=== PATIENT | female | born 1940 | race Caucasian/White ===

== ENCOUNTER 2019-10-20 13:24 | Emergency (ER) | payer MEDICARE, SELFPAY ==
[2019-10-20] VITALS (10 sets, daily range): BP systolic 61–94; BP diastolic 37–75; PULSE 83–111; RESP 14–22; TEMP 34.4–36.6; O2SAT 93–100; BMI 14.8
--- NOTE | 2019-10-20 13:25 | EKG12_ITS ---
Test Reason : STROKE TEAM Blood Pressure : / mmHG Vent. Rate : 114 BPM Atrial Rate : 114 BPM P-R Int : 000 ms QRS Dur : 074 ms QT Int : 388 ms P-R-T Axes : 000 070 -83 degrees QTc Int : 534 ms Atrial fibrillation with rapid ventricular response Anterior infarct , possibly acute T wave abnormality, consider inferolateral ischemia Confirmed by ROBIN HENDERSON, REBA ([id number]), commercial production editor CINDY WHITFIELD ([id number]) on 10/22/2019 8:32:18 AM Referred By: LAKEISHA Confirmed By:REBA KELLY MD
--- NOTE | 2019-10-20 13:25 | CT_ITS ---
STUDY: CT BRAIN WITHOUT CONTRAST REASON FOR EXAM: Female, 79 years old. RT SIDE DEFICIT RADIATION DOSAGE (If Supplied By Facility): CTDIvol = ( 44.99 ) mGy, DLP = ( 745.49 ) mGycm TECHNIQUE: Transaxial CT imaging of the brain was performed without administration of intravenous contrast material. Individualized dose optimization techniques were used for this CT. COMPARISON: No relevant priors. FINDINGS: Normal soft tissue structures. Normal calvarium. There is mild cerebral atrophy with widening of the extra-axial spaces and ventricular dilatation. There are areas of decreased attenuation within the white matter tracts of the supratentorial brain, consistent with microvascular disease changes. There is low attenuation within the basal ganglia compatible with prior ischemic change. Normal brainstem. Normal cerebellum. There is no intracranial hemorrhage. There are no findings of an acute ischemic infarction. There are bilateral middle turbinate kwame bullosa''s. There is an air-fluid level within the enlarged left mastoid air cell image #11. There is minimal fluid in the right-sided mastoid air cells. CT/Brain/Head without Contrast IMPRESSION: Atrophy no evidence of acute hemorrhage infarct or edema. Recommend consideration for follow-up MRI given the clinical history. Age indeterminant possibly acute left greater than right mastoiditis. Electronically Signed: Bhumi Garcia MD at 13:46 EDT Tel , Service support ,
--- NOTE | 2019-10-20 13:27 | CT_ITS ---
STUDY: CTA HEAD AND NECK WITH CONTRAST REASON FOR EXAM: Female, 79 years old. NEURO DEFICIT RADIATION DOSAGE (If Supplied By Facility): CTDIvol = ( 13.29 ) mGy, DLP = ( 373.69 ) mGycm TECHNIQUE: CT angiography was performed with a multi-detector CT scanner. Data acquisition was obtained from the skull base through the vertex following intravenous administration of 100 CC ISOVUE 370. MIP images were reconstructed from the axial data set. Post-processing of the angiographic images was performed, with multiplanar reformation and 3D reconstruction. Individualized dose optimization techniques were used for this CT. COMPARISON: CT head October 20, 2019 FINDINGS: Normal bilateral petrous carotid arteries. There is calcified plaque formation of the right cavernous carotid artery, with a mild stenosis (less than 50%). There is calcified plaque formation of the left cavernous carotid artery, with a mild stenosis (less than 50%). Hypoplastic but patent right A1 segments of the anterior cerebral artery. Normal left A1 segments of the anterior cerebral artery. Normal intact anterior communicating artery (ACOM). Normal bilateral A2 segments of the anterior cerebral arteries. Normal right M1 and M2 segments of the middle cerebral arteries, with a normal M1 bifurcation. In the proximal M1 segment there is a focus of narrowing image #170 to within the left M1 segment. There appears to be an abrupt cut off within the superior segment left M2 segment image #48 of the coronal views. There is enhancement of the insular segment. There is diminished vascularity of the left parietal lobe image #196. Normal right posterior communicating artery (PCOM). Normal left posterior communicating artery (PCOM). Normal bilateral vertebral arteries. Normal basilar artery with a normal basilar bifurcation. The visualized bilateral superior cerebellar (SCA) arteries are normal. There is a hypoplastic appearance of the right sided P1. There is no demonstrated aneurysm of the [place] of [place]. There is subtle low attenuation within the left hemisphere compared to the right. AORTIC ARCH: The aortic arch is displaced to the left ICA massively distended thick-walled fluid-filled partially contrast filled esophagus and/or paraesophageal mass that measures up to 4.5 x 4.6 cm. This extends from the thoracic inlet to the visualized mediastinum. There is right greater than left apical thickening. There is calcification at the takeoff of the left vertebral artery which is extending from the aortic arch. The takeoff of the innominate is not visualized. RIGHT CAROTID ARTERIES: There is atherosclerotic tortuous elongation of the right common carotid artery. The right carotid bulb is medially located and seen in the prevertebral space behind the level of the epiglottis. There is mild atherosclerotic plaque formation of the origin of the right internal carotid artery with less than 50% cross sectional diameter stenosis. There is atherosclerotic tortuous elongation of the cervical portion of the right internal carotid artery. Normal origin of the right external carotid artery (ECA). LEFT CAROTID ARTERIES: A proximal left common carotid artery is not fully imaged on this study. The left carotid bulb is also tortuous sitting behind the level of the epiglottis. There is mild atherosclerotic plaque formation of the origin of the left internal carotid artery with less than 50% cross sectional diameter stenosis. There is atherosclerotic tortuous elongation of the cervical portion of the left internal carotid artery. Normal origin of the left external carotid artery (ECA). VERTEBRAL ARTERIES: As mentioned above there is direct takeoff from the aorta of the left vertebral artery which is partially calcified at its take off. Vessels appear patent. CT/CTA Head AND Neck W/ Contrast IMPRESSION: There is massive distention of the visualized proximal thickened appearing esophagus measuring 4.5 x 4.6 cm which is full of food and/or fluid which pushes the aorta towards the left. There is also some effacement of the trachea. Recommend correlation with clinical history. Esophagus is likely obstructed and there is a large mass in the esophagus. Recommend CT scan of the chest when appropriate. Findings highly suspicious for occlusion of the superior division of the left MCA artery involving the distal M2 segment. There is also diminished vascularity possible early edema of the left parietal lobe in the same distribution, not as well-seen on the earlier study 1:30 PM without contrast.. There is focal narrowing in the M1 segment without occlusion. Atrophy chronic involutional change. There is tortuosity of the carotid bulbs without occlusion. There is less than 50% stenosis suggested at the bilateral internal carotid arteries allowing for some motion artifact in the vicinity. N.B. : The above information has been verbally conveyed by Bhumi Garcia MD to Michael Logan MD, on 10/20/2019 14:31:33 (ET). Electronically Signed: Bhumi Garcia MD at 14:32 EDT Tel , Service support ,
--- NOTE | 2019-10-20 13:28 | ED.VIS.STROK ---
History of Present Illness Chief Complaint: Neuro S/Sx Informant: [employer] Onset: Today Context: Sudden Onset Timing: Continuous Quality and Location: Right Facial Droop, Right Arm Weakness, Right Leg Weakness, Expressive Aphasia, Difficulty with Ambulation Onset: 1229October 19 Current Severity: Severe Maximum Severity: Severe Worsened by: Nothing Relieved by: Nothing Associated Symptoms: - - Unable to determine Narrative: Patient 79-year-old woman brought in by squad because of concern for stroke. Upon arrival patient has eyes forced to the left. Flaccid right side. Asymmetric face. Unable to speak. There appears to be a visual field deficit with threat coming from the right side. History is limited. Squad informed us that the family did not know how to spell her name. When daughter arrived I spoke to her and told her of her mother's condition and concerns. She also informed me she saw her primary care for physician and was placed on medicine for flulike symptoms. She was seen on . She was placed on medicine. Prior similar symptoms: No Recent Illness/Hospitalization: No - Past Medical History (1) COPD (chronic obstructive pulmonary disease) Status: Chronic (2) Anemia, iron deficiency Status: Acute Past Medical History - Allergies and Home Meds Allergies/Adverse Reactions: Allergies No Known Allergies Allergy (Verified 10/20/19 14:21) Primary Care Physician: Efrem Abernathy MD [Primary Care Provider] - Lives: With Family Smoking Status: Current every day smoker Alcohol: None Drugs: None - Family History Maternal Family History: Reports: No pertinent history Review of Systems ROS: Unable to Obtain STROKE Inital Vital Signs reviewed: No - Patient taken straight to CAT scan - NIHSS Initial 1b LOC Questions (Score 2 if aphasic/stupor): 2 1c LOC Commands (Only score 1st attempt): 2 2 Best Gaze (If aphasic, use reflexive mvmts.): 2 3 Visual: 1 4 Facial Palsy: 1 5 Motor Arm Right (UN = amputation/fusion): 4 5 Motor Arm Left: 0 6 Motor Leg Right: 4 6 Motor Leg Left: 0 7 Limb ataxia (Only + if out of proportion): UN 8 Sensory (Aphasia/stupor=0 or 1, coma=2): 2 9 Best Language: 2 10 Dysarthria (mute, coma=2, intubated=UN): 2 11 Extinction and Inattention (only scored if +): 2 Total Score: 24 General: Well developed, Cachectic Head: Normocephalic, Atraumatic Eyes: Negative for: EOMI, Pale conjunctiva, Scleral icterus ENT: No rhinorrhea, Dry mucous membranes Neck: Supple, Nontender, No lymphadenopathy Cardiovascular: Regular rate, Regular rhythm, No murmurs, Normal S1, Normal S2 Respiratory: No distress, Chest nontender, Decreased Air Movement Abdomen: Soft, Nontender, Nondistended, Normal bowel sounds, No masses Rectal: Deferred Back: Nontender Extremities: Nontender, No edema Skin: Normal color, No rash, Cyanosis - Patient has acrocyanosis. Cap refill is delayed. Neurological: Negative for: Alert, Oriented x3, Cranial nerves II-XII grossly intact, Normal Strength, Normal Sensation, Normal DTR, Normal Gait Psychological: - - Able to determine Diagnostic/Tx/Re-eval Impressions Brain CT 10/20/19 13:25 IMPRESSION: Atrophy no evidence of acute hemorrhage infarct or edema. Recommend consideration for follow-up MRI given the clinical history. Age indeterminant possibly acute left greater than right mastoiditis. Electronically Signed: Bhumi Garcia MD at 13:46 EDT Tel , Service support , Head/Neck CTA 10/20/19 13:27 IMPRESSION: There is massive distention of the visualized proximal thickened appearing esophagus measuring 4.5 x 4.6 cm which is full of food and/or fluid which pushes the aorta towards the left. There is also some effacement of the trachea. Recommend correlation with clinical history. Esophagus is likely obstructed and there is a large mass in the esophagus. Recommend CT scan of the chest when appropriate. Findings highly suspicious for occlusion of the superior division of the left MCA artery involving the distal M2 segment. There is also diminished vascularity possible early edema of the left parietal lobe in the same distribution, not as well-seen on the earlier study 1:30 PM without contrast.. There is focal narrowing in the M1 segment without occlusion. Atrophy chronic involutional change. There is tortuosity of the carotid bulbs without occlusion. There is less than 50% stenosis suggested at the bilateral internal carotid arteries allowing for some motion artifact in the vicinity. N.B. : The above information has been verbally conveyed by Bhumi Garcia MD to Michael Logan MD, on 10/20/2019 14:31:33 (ET). Electronically Signed: Bhumi Garcia MD at 14:32 EDT Tel , Service support , ADDENDUM: 10/20/19 1439 IMPRESSION: There is massive distention of the visualized proximal thickened appearing esophagus measuring 4.5 x 4.6 cm which is full of food and/or fluid which pushes the aorta towards the left. There is also some effacement of the trachea. Recommend correlation with clinical history. Esophagus is likely obstructed and there is a large mass in the esophagus. Recommend CT scan of the chest when appropriate. Findings highly suspicious for occlusion of the superior division of the left MCA artery involving the distal M2 segment. There is also diminished vascularity possible early edema of the left parietal lobe in the same distribution, not as well-seen on the earlier study 1:30 PM without contrast.. There is focal narrowing in the M1 segment without occlusion. Atrophy chronic involutional change. There is tortuosity of the carotid bulbs without occlusion. There is less than 50% stenosis suggested at the bilateral internal carotid arteries allowing for some motion artifact in the vicinity. N.B. : The above information has been verbally conveyed by Bhumi Garcia MD to Mihcael Logan MD, on 10/20/2019 14:31:33 (ET). Electronically Signed: Bhumi Garcia MD at 14:32 EDT Tel , Service support , Chest X-Ray 10/20/19 13:52 IMPRESSION: There is increased density in the right paramediastinal soft tissues which on this chest x-ray does not clearly represent the true size of a distended proximal esophagus full of food or possible mass which on limited visualization on the CT scan of the carotid and measured up to 5 cm. There is increased density at the isela which could be due to represent the same. When appropriate recommend consideration for CT scan of the chest. Nonspecific hyperinflation of the lungs which may represent chronic obstructive pulmonary disease. Electronically Signed: Bhumi Garcia MD at 14:46 EDT Tel , Service support , 10/20/19 13:25 Brain/Head without Contrast [CT] Stat 10/20/19 13:27 CTA Head AND Neck W/ Contrast [CT] Stat 10/20/19 13:52 Chest 1 View (Portable) [RAD] Stat 10/20/19 14:25 Mucosa - Nasopharyngeal Influenza Types A,B Direct FA (DONTAE) - Final 10/20/19 14:25 Mucosa - Nasopharyngeal Rapid RSV (DFA) - Final Laboratory Results 10/20/19 10/20/19 10/20/19 13:55 13:55 13:55 WBC 12.5 H RBC 3.58 L Hgb 11.4 L Hct 34.8 L MCV 97.2 MCH 31.8 MCHC 32.8 RDW Std Deviation 48.2 H RDW Coeff of Jackie 13.6 Plt Count 192 MPV 10.2 Immature Gran % (Auto) 0.400 Neut % (Auto) 78.1 H Lymph % (Auto) 15.1 L Cloud % (Auto) 6.1 Eos % (Auto) 0.1 Baso % (Auto) 0.2 Absolute Neuts (auto) 9.8 H Absolute Lymphs (auto) 1.89 Nucleated RBC % 0 PT 16.7 H INR 1.4 APTT 31.9 Specimen Type Sample Site pH Bicarbonate Actual POC Total CO2 Base Excess O2 Saturation O2 % ABG pCO2 ABG pO2 Kodak Test Respiration Rate O2 Delivery Device Vent Mode Tidal Volume POC PEEP Blood Gas Notified Whom Blood Gas Notified Time Sodium 139 Potassium 2.4 L* Chloride 96 L Carbon Dioxide 35.0 H Anion Gap 8 BUN 30 H Creatinine 0.88 Estim Creat Clear Calc 28.57 Est GFR (MDRD) Af Amer 80 Est GFR (MDRD) Non-Af 66 BUN/Creatinine Ratio 34.2 H Glucose 117 H Lactic Acid Calcium 8.6 Troponin I 1.090 H* 10/20/19 10/20/19 13:55 14:13 WBC RBC Hgb Hct MCV MCH MCHC RDW Std Deviation RDW Coeff of Jackie Plt Count MPV Immature Gran % (Auto) Neut % (Auto) Lymph % (Auto) Cloud % (Auto) Eos % (Auto) Baso % (Auto) Absolute Neuts (auto) Absolute Lymphs (auto) Nucleated RBC % PT INR APTT Specimen Type ART Sample Site R Radial pH 7.51 H Bicarbonate Actual 27.8 H POC Total CO2 29 Base Excess 5 H O2 Saturation 100 H O2 % 100 ABG pCO2 35.0 ABG pO2 241 H Kodak Test POS Respiration Rate 400 O2 Delivery Device Vent Vent Mode A-C Tidal Volume 14 POC PEEP 5 Blood Gas Notified Whom ED Blood Gas Notified Time 1412 Sodium Potassium Chloride Carbon Dioxide Anion Gap BUN Creatinine Estim Creat Clear Calc Est GFR (MDRD) Af Amer Est GFR (MDRD) Non-Af BUN/Creatinine Ratio Glucose Lactic Acid 2.9 H* Calcium Troponin I Chest X-Ray - ED: 1 View, Read by ED Physician, - - Endotracheal tube is approximately 3 cm from the isela. There is chronic changes with hyper aeration. There are some increased interstitial markings on the left. - EKG Initial EKG Interpretation: Atrial Fibrillation - Atrial fibrillation with a ventricular rate of 110. There is motion artifact. There is no obvious ischemic changes noted. - Medical Decision Making Stroke Team Activated: Yes Reviewed Inclusion/Exclusion criteria: Yes Was Patient considered for Endovascular Intervention?: Yes - Not a candidate since no obvious clot noted on CTA IV Alteplase (t-PA) Administered: Yes No contraindications for IV Alteplase (t-PA) administration.: Yes - No contraindications Alteplase (t-PA) risks, benefits, alternative discussed: No - Family not available because intoxicated, decision made by me and [facility] atten Patient was assessed and orders were placed for CT and CTA. Patient visual pierce were assessed between enhanced and unenhanced scan. I was informed her most recent blood pressure 70. Since she has decreased level conscious since presentation with hypotension and will administer fluid bolus and patient will probably require intubation if she is a full code. Patient was reevaluated again in the radiology suite. She has minimal respiratory effort. Blood pressure is low. She received a 1 L bolus. She was orotracheally debated for numerous reasons. She has green-colored material coming from the trachea. Concerned this may represent pneumonia and because of her hypotension. The [facility] neurologist reviewed her images. He was informed of patient's presentation and present condition. Agrees the unenhanced scan reveals no evidence of hemorrhage. The decision to administer TPA since there is no responsible family of her present was made on patient's presentation and severity. I received a call back from him after he reconstructed the CTA and he is concerned there is a clot in the M1, M2 and possibly distally and M3. He asked if the radiologist has read the CTA at this point. Radiology was contacted and made aware there is concern for clot in M1, M2 and M3 on the left. He stated he would accept patient if there are clots for retrieval. He agrees patient needs to be stabilized and she is hemodynamically unstable. Portable chest x-ray was obtained to assess endotracheal tube and and to evaluate for pneumonia. Since she has green sputum coming from the trachea/endotracheal tube. She received a 30 cc/kg bolus. Will order antibiotics for presumed community-acquired pneumonia Patient's A. fib with RVR was not treated with rate control medicine because of hypotension. Her heart rate may be rapid in response to her hypotension. By controlling her rate her hypotension may worsen. Since there is concern that the stroke is embolic she was not cardioverted. Procedure note: Patient received 10 mg of etomidate. She was easily orotracheally intubated using glide scope. A 7.0 endotracheal tube was placed. Position was confirmed by chest x-ray. There is green sputum from the endotracheal tube. After patient was orotracheal intubated she was bucking the vent. She was given 50 mg of rocuronium. She has been in sync with the ventilator and no further medications have been given. The transfer line informed us they were unable to fly because of concerns for COVID. [place] was turned down by 3 other services. Spoke with director for helicopter service, Dr. Oh,. He was informed of patient's history, physical findingThe transfer line informed us they were unable to fly because of concerns for COVID. Critical care time (excluding procedures): 30-74 minutes - Critical care time included obtaining history from outside source, bedside care, discussion with neurologist at [facility] x2, arrangement for transport, direct patient care at bedside. ED Disposition - Plan for ED Patient: Disposition: [facility] Diagnosis: Left acute arterial ischemic stroke, MCA (middle cerebral artery), Hypotension (arterial), Atrial fibrillation with RVR, Hypokalemia, Elevated troponin I level, Severe sepsis, Suspected 2019 novel coronavirus infection, Hypothermia, initial encounter Referrals: Efrem Abernathy MD [Primary Care Provider] -
--- NOTE | 2019-10-20 13:35 | NURSING ---
FAXED FACESHEET TO [facility]
--- NOTE | 2019-10-20 13:50 | EKG12_ITS ---
Test Reason : STROKE TEAM Blood Pressure : / mmHG Vent. Rate : 104 BPM Atrial Rate : 104 BPM P-R Int : 164 ms QRS Dur : 076 ms QT Int : 422 ms P-R-T Axes : 088 068 -83 degrees QTc Int : 554 ms Sinus tachycardia with occasional Premature ventricular complexes Possible Left atrial enlargement Abnormal ECG Confirmed by ROBIN HENDERSON, REBA ([id number]), editorial intern CINDY WHITFIELD ([id number]) on 10/22/2019 8:32:43 AM Referred By: LAKEISHA Confirmed By:REBA KELLY MD
--- NOTE | 2019-10-20 13:52 | RAD_ITS ---
STUDY: X-RAY CHEST REASON FOR EXAM: Female, 79 years old. Stroke, et tube placement TECHNIQUE: Single AP portable view of the chest. COMPARISON: CT angiogram neck October 20, 2019 FINDINGS: The right side esophageal paraesophageal mass is not well-visualized on this chest x-ray as it is on the CT angiogram. There is deviation of the trachea towards the left and increased density at the level of the hilum. There is right greater than left apical thickening. Lungs are hyperinflated. There is no demonstrated pleural abnormality. Normal size heart. Normal mediastinum and gisela. Normal visualized pulmonary arteries. There is atherosclerotic tortuosity of the aortic arch and descending thoracic aorta. There are diffuse degenerative changes of the visualized thoracic spine. Normal visualized ribs, clavicles, and shoulders. There is no demonstrated abnormality of the visualized soft tissue structures of the upper abdomen. RAD/Chest 1 View (Portable) IMPRESSION: There is increased density in the right paramediastinal soft tissues which on this chest x-ray does not clearly represent the true size of a distended proximal esophagus full of food or possible mass which on limited visualization on the CT scan of the carotid and measured up to 5 cm. There is increased density at the isela which could be due to represent the same. When appropriate recommend consideration for CT scan of the chest. Nonspecific hyperinflation of the lungs which may represent chronic obstructive pulmonary disease. Electronically Signed: Bhumi Garcia MD at 14:46 EDT Tel , Service support ,
--- NOTE | 2019-10-20 13:57 | NURSING ---
DR MENSAH, OS, FOR DR SUAZO
--- NOTE | 2019-10-20 13:59 | NURSING ---
1320 STROKE ALERT CALLED.
[2019-10-20 14:00] LABS: Absolute Lymphocyte Count 1.89 X10^3/uL (0.83-4.51); Absolute Neutrophil Count 9.8 X10^3/uL (2.0-7.7); Basophil# 0.02 X10^3/uL; Basophil% 0.2 % (0-1); Eosinophil# 0.01 X10^3/uL; Eosinophils% 0.1 % (0-5); Hematocrit 34.8 % (37-47); Hemoglobin 11.4 g/dL (12.0-15.0); Lymphocyte # 1.89 X10^3/ul (4.0); Lymphocyte % 15.1 % (19-41); Mean Corp Hgb Conc 32.8 g/dL (32-36); Mean Corpuscular Hgb 31.8 pg (27.0-32.0); Mean Corpuscular Volume 97.2 fL (81-99); Mean Platelet Vol. 10.2 fl (6.2-12.0); Monocyte# 0.77 X10^3/uL; Monocyte% 6.1 % (0-10); NRBC Flagged by Analyzer 0 % (0-5); Neutrophil % 78.1 % (47-70); Platelet Count 192 K/mm3 (150-450); RBC Distribution Width CV 13.6 % (11.6-14.6); RBC Distribution Width SD 48.2 fl (35.1-43.9); Red Blood Count 3.58 M/mm3 (4.2-5.4); White Blood Count 12.5 K/mm3 (4.4-11.0)
[2019-10-20] MEDS: 0.9% Normal Saline 1,000 ML 1000 ML IV (14:06)
[2019-10-20 14:08] LABS: International Normalized Ratio 1.4; Partial Thromboplast Time 31.9 Seconds (24.1-36.2); Prothrombin Time (Protime)PT. 16.7 SECONDS (11.7-14.9)
[2019-10-20 14:21] LABS: Allen Test POS; Base Excess 5 mmol/L (-2 to +2); Bicarbonate 27.8 mmol/L (22-26); Blood Gas Specimen Type ART; Mode A-C; O2 Delivery Device Vent; PEEP 5; PO2 241 mmHG (75-100); RR 400; SITE R Radial; SO2 100 % (95-99); Time Given 1412; Total Carbon Dioxide 29 mmol/L; Vt 14; pH 7.51 (7.35-7.45)
[2019-10-20 14:23] LABS: Anion Gap 8 (5-15); BUN 30 mg/dL (7-18); BUN/Creat Ratio 34.2 RATIO (10-20); Calcium,Total 8.6 mg/dL (8.5-10.1); Chloride 96 mmol/L (98-107); Creatinine, Serum 0.88 mg/dL (0.55-1.02); EST Glomerular Filtration Rate 66 mL/min (>60); Est Glom Filt Rate - Afr Amer 80 mL/min (>60); Estimated Creatinine Clearance 28.57 ml/min; Glucose 117 mg/dL (74-106); Potassium 2.4 mmol/L (3.5-5.1); Sodium Level 139 mmol/L (136-145)
[2019-10-20 14:24] LABS: Lactic Acid 2.9 mmol/L (0.4-1.9)
--- NOTE | 2019-10-20 14:52 | NURSING ---
1426 called [facility] , unable to transfer 1430 called phys, unable to transfer called [facility], unable to transfer due to filtration system call [facility]. talked to gavin. dr negrete talked to dr austin. awaiting call with eta
--- NOTE | 2019-10-20 15:08 | ED.RN ---
PT REMAINS INTUBATED. UNABLE TO COMPLETE NIH. CORE TEMP DECREASING. GRACIA WHITE INITIATED. DR VELEZ
--- NOTE | 2019-10-20 15:13 | NURSING ---
ETA IS 5 TO 7 MIN GOING TO ED
[2019-10-20] MEDS: Potassium Chloride 10mEq/100mL 10 MEQ/100 ML IV.SOLN. 100 MEQ IV BOLUS (15:23)
[2019-10-20] MEDS: 0.9% Normal Saline 1,000 ML 100 ML IV (15:25)
[2019-10-20] MEDS: Rocuronium Bromide 50 MG/5 ML Vial IV (15:25)
--- NOTE | 2019-10-20 16:11 | ED.RN ---
REPORT TO YSABEL VIA PHONE AT [facility]. [facility] LOADS UP. DEPART
[2019-10-20 18:00] LABS: Reflex Lactate? Y
[2019-10-21 07:18] LABS: FI02 60
== END 2019-10-20 16:13 | disposition short-term general hospital (02) ==
PROVIDERS: Emergency Provider Emergency Medicine; PCP Family Medicine
DX: I63.9 Cerebral infarction, unspecified (principal); G81.01 Flaccid hemiplegia affecting right dominant side; R29.810 Facial weakness; R47.01 Aphasia; A41.9 Sepsis, unspecified organism; R65.21 Severe sepsis with septic shock; I48.91 Unspecified atrial fibrillation; E87.6 Hypokalemia; I95.9 Hypotension, unspecified; J44.9 Chronic obstructive pulmonary disease, unspecified; R79.89 Other specified abnormal findings of blood chemistry; K22.8 Other specified diseases of esophagus; D50.9 Iron deficiency anemia, unspecified; F17.200 Nicotine dependence, unspecified, uncomplicated; Z79.899 Other long term (current) drug therapy
CPT/HCPCS: 31500; 36600; 51702; 70450; 70496; 70498; 71045; 80048; 82803; 83605; 84484; 85025; 85610; 85730; 87086; 87804; 87807; 93005; 94002; 96365; 96367; 96375; 99251; 99285; J2997; J7030; J7050; Q9967; A4216; G0463; J0696